=== PATIENT | male | born 1965 | race Caucasian/White ===

== ENCOUNTER 2020-10-12 17:42 | Inpatient (IN) | payer OTHER ==
[~2020-10-12] VITALS: Ht 176.7 cm; Wt 53.6 kg
[2020-10-12 17:50] VITALS: BP 164/113
[2020-10-12 18:26] LABS: BASO # 0.1 10*3/uL (0.0-0.1); BASO % 0.5 % (0.0-1.0); EOS # 0.2 10*3/uL (0.0-0.4); EOS % 1.4 % (1.0-4.0); HEMATOCRIT 44.4 % (42.0-52.0); LYMPH % 26.1 % (27.0-41.0); MEAN CELL VOLUME 92.3 fl (80.0-94.0); MEAN CORPUSCULAR HGB 29.5 pg (27.0-31.0); MEAN PLATELET VOLUME 8.8 fl (9.6-12.3); MONO # 0.9 10*3/uL (0.1-1.0); MONO % 7.4 % (3.0-9.0); NEUT # 7.4 10*3/uL (2.3-7.9); NEUT % 64.3 % (47.0-73.0); PLATELET COUNT AUTOMATED 330 10*3/uL (130-400); RED BLOOD COUNT 4.81 10*6/uL (4.50-5.90); RED CELL DISTRI WIDTH 12.7 % (0-14.5); WHITE BLOOD COUNT 11.6 10*3/uL (4.8-10.8)
[2020-10-12 18:41] LABS: ALBUMIN 3.4 gm/dl (3.1-4.5); ALKALINE PHOSPHATASE 100 U/L (45-117); BUN 21 mg/dl (7-24); CHLORIDE 109 mmol/L (98-107); CREATININE 1.13 mg/dL (0.70-1.30); SGOT/AST 9 IU/L (3-35); SGPT/ALT 22 U/L (12-78); SODIUM 138 mmol/L (136-145); TOTAL PROTEIN 7.7 gm/dL (6.4-8.2)
[2020-10-12 18:53] LABS: ETHYL ALCOHOL < 3.0 mg/dl (<3)
[2020-10-12 20:00] VITALS: BP 132/79
[2020-10-12 20:35] LABS: BILIRUBIN Negative (Negative); BLOOD Negative (Negative); CLARITY Clear (Clear); COLOR Dark Yellow (Yellow); GLUCOSE Negative (Negative); KETONE Trace (Negative); LEUKO ESTERASE Negative (Negative); NITRITE Negative (Negative); SPECIFIC GRAVITY >= 1.030 (1.001-1.030)
[2020-10-12 20:46] LABS: URINE AMPHETAMINES < 1000 (1000ng/ml); URINE BARBITURATES < 200 (200ng/ml); URINE BENZODIAZEPINES < 200 (200ng/ml); URINE CANNABINOIDS (THC) < 50 (50ng/ml); URINE COCAINE < 300 (300ng/ml); URINE METHADONE < 300 (300ng/ml); URINE OPIATES < 300 (300ng/ml)
[2020-10-12 20:54] LABS: URINE PHENCYCLIDINE < 25 (25ng/ml)
[2020-10-12 21:01] LABS: CALCIUM OXALATE CRYSTALS Trace; MUCOUS 3+
[2020-10-13] VITALS: BP 135/74
[2020-10-13 08:00] VITALS: BP 124/86
[2020-10-13 12:00] VITALS: BP 143/81
[2020-10-13 16:00] VITALS: BP 129/73
[2020-10-13 20:00] VITALS: BP 139/84
[2020-10-14] VITALS: BP 123/80
[2020-10-14 08:00] VITALS: BP 132/82
[2020-10-14 16:00] VITALS: BP 118/60
[2020-10-14 20:00] VITALS: BP 130/89
[2020-10-15] VITALS: BP 133/88
[2020-10-15 08:00] VITALS: BP 123/82
[2020-10-15] MEDS ORDERED: METHOCARBAMOL750 M1 PO (08:37)
[2020-10-15] MEDS ORDERED: DICYCLOMINE HCL20 MG PO (08:37)
[2020-10-15] MEDS ORDERED: NATURE'S BLEND F1 MG PO (08:37)
[2020-10-15] MEDS ORDERED: ROPINIROLE HYD0.5 MG PO (08:37)
[2020-10-15] MEDS ORDERED: ATARAX,VISTARIL50 MG PO (08:37)
[2020-10-15] MEDS ORDERED: VITAMIN B-1100 M1 PO (08:37)
[2020-10-15] MEDS ORDERED: MOTRIN 600 MG E4 TAB PO (08:37)
== END 2020-10-15 10:05 | disposition home or self-care (01) | DRG 773 ==
LOC: 5E 17:42 → 4E 10-14 18:18
PROVIDERS: Internal Medicine; ADMIT Internal Medicine; ATTEND Internal Medicine
DX: F11.93 Opioid use, unspecified with withdrawal (principal); M19.90 Unspecified osteoarthritis, unspecified site; R63.6 Underweight; F17.210 Nicotine dependence, cigarettes, uncomplicated; H54.62 Unqualified visual loss, left eye, normal vision right eye; Z83.3 Family history of diabetes mellitus; Z82.49 Family history of ischemic heart disease and other diseases of the circulatory system; Z71.6 Tobacco abuse counseling; Z68.1 Body mass index [BMI] 19.9 or less, adult